=== PATIENT | female | born 1990 | race Caucasian/White ===

== ENCOUNTER 2022-11-29 10:30 | Oncology outpatient (recurring) (ONCR) | payer OTHER, SELFPAY ==
[2022-11-15 10:26] LABS: Basophils # 0.1 10^3/uL (0.0-0.1); Basophils % 0.9 %; Eosinophils # 0.1 10^3/uL (0.0-0.8); Eosinophils % 2.4 %; Hematocrit 32.9 % (36-47); Lymphocytes # 2.5 10^3/uL (0.8-4.8); Lymphocytes % 43.7 %; Mean Corpuscular HGB Conc 29.5 g/dL (30-55); Mean Corpuscular Hemoglobin 23.9 pg (27-33); Mean Platelet Volume 9.9 fL (7.4-10.4); Monocytes # 0.5 10^3/uL (0.2-0.9); Monocytes % 8.8 %; Neutrophils # 2.55 10^3/uL (1.8-7.7); Nucleated Red Blood Cells % 0 %; Platelet Count 287 10^3/cmm (157-399); Red Blood Count 4.06 10^6/uL (3.85-5.65); Red Cell Distribution Width 14.5 % (12.1-15.1); White Blood Count 5.79 10^3/uL (3.29-11.43)
[2022-11-15 10:32] LABS: Reticulocyte % 0.8 % (0.5-2.0)
[2022-11-15 10:50] LABS: Ferritin 8 ng/mL (15-150); Iron 17 ug/dL (37-145)
[2022-11-21 01:29] LABS: Soluble Transferrin Receptor 2.21 mg/L (0.76-1.76)
[2022-11-22] MEDS: sodium chloride 0.9% 250 ML 75 ML IV (10:35)
[2022-11-22] MEDS: ferric carboxy (IVPB) 750 MG in sodium chloride 0.9% (100 ml) 100 ML 345 MG IV (10:35)
[2022-11-22 11:12] VITALS: BP 104/73; PULSE 79; RESP 16; TEMP 36.6; O2SAT 96
[2022-11-29 10:25] VITALS: BP 110/77; PULSE 92; RESP 16; TEMP 36.2; O2SAT 100
[2022-11-29] MEDS: sodium chloride 0.9% 250 ML 75 ML IV (10:29)
[2022-11-29] MEDS: ferric carboxy (IVPB) 750 MG in sodium chloride 0.9% (100 ml) 100 ML 345 MG IV (10:38)
[2022-11-29 11:09] VITALS: BP 106/71; PULSE 90; RESP 16; TEMP 36.6; O2SAT 99
== END 2022-12-14 23:59 | disposition home or self-care (01) ==
PROVIDERS: Internal Medicine Medical Oncology; Visit Provider Internal Medicine Medical Oncology
DX: D50.8 Other iron deficiency anemias (principal)
CPT/HCPCS: 82728; 83540; 84238; 85025; 85045; 96365; J1439; J7050

== ENCOUNTER 2022-12-26 12:15 | Oncology outpatient (recurring) (ONCR) | payer OTHER, SELFPAY ==
[2022-12-26 12:28] VITALS: BP 100/69; PULSE 92; RESP 16; TEMP 37.1; O2SAT 99
[2022-12-26 12:29] VITALS: BMI 20.2
[2022-12-26 12:34] LABS: Basophils % 0.3 %; Eosinophils # 0.1 10^3/uL (0.0-0.8); Eosinophils % 1.5 %; Hematocrit 36.7 % (36-47); Lymphocytes # 2.7 10^3/uL (0.8-4.8); Lymphocytes % 45.7 %; Mean Corpuscular HGB Conc 32.2 g/dL (30-55); Mean Corpuscular Hemoglobin 28.6 pg (27-33); Mean Corpuscular Volume 89.1 fl (85-98); Mean Platelet Volume 9.3 fL (7.4-10.4); Monocytes # 0.4 10^3/uL (0.2-0.9); Monocytes % 6.1 %; Neutrophils # 2.71 10^3/uL (1.8-7.7); Neutrophils % 46.2 %; Nucleated Red Blood Cells % 0 %; Platelet Count 272 10^3/cmm (157-399); Red Blood Count 4.12 10^6/uL (3.85-5.65); White Blood Count 5.87 10^3/uL (3.29-11.43)
[2022-12-26 12:56] LABS: Alanine Aminotransferase 65 U/L (0-33); Albumin Level 4.1 g/dL (3.5-5.2); Alkaline Phosphatase 96 U/L (35-105); Anion Gap 12.2 (5-19); Aspartate Amino Transferase 37 U/L (0-32); Blood Urea Nitrogen 12 mg/dL (6-20); Calcium 8.7 mg/dL (8.5-10.5); Carbon Dioxide 26 mmol/L (22-29); Chloride 104 mmol/L (98-107); Ferritin 328 ng/mL (15-150); Globulin 2.5 g/dL (1.3-4.6); Glomerular Filtration Rate 115.9 mL/min (90-130); Glucose 99 mg/dL (65-115); Iron 82 ug/dL (37-145); Osmolality Calculated 286 mOsm/kg (285-295); Percent Saturation 41.6 % (20-50); Potassium 4.2 mmol/L (3.5-5.1); Sodium 138 mmol/L (136-145); Total Bilirubin 0.3 mg/dL (0.15-1.2); Total Iron Binding Capacity 197 mcg/dl; Total Protein 6.6 g/dL (6.6-8.7); Unsaturated Iron Binding 115 ug/dL (112-347)
== END 2023-01-14 23:59 | disposition home or self-care (01) ==
PROVIDERS: Visit Provider Internal Medicine Medical Oncology
DX: D50.8 Other iron deficiency anemias (principal); Z79.899 Other long term (current) drug therapy
CPT/HCPCS: 36415; 80053; 82728; 83540; 83550; 85025

== ENCOUNTER 2025-03-08 11:30 | Oncology outpatient (recurring) (ONCR) | payer OTHER, SELFPAY ==
[2025-03-01] MEDS: ferric carboxy (PYXIS) 750 MG in sodium chloride 0.9% (100 ml) 100 ML 345 MG IV (12:00)
[2025-03-01 12:28] VITALS: BP 100/68; PULSE 75; RESP 16; TEMP 37.2; O2SAT 97
[2025-03-08] MEDS: ferric carboxy (PYXIS) 750 MG in sodium chloride 0.9% (100 ml) 100 ML 345 MG IV (11:07)
[2025-03-08 11:31] VITALS: BP 105/72; PULSE 98; RESP 17; TEMP 36.7; O2SAT 100
== END 2025-03-16 23:59 | disposition home or self-care (01) ==
PROVIDERS: Visit Provider Internal Medicine
DX: D50.8 Other iron deficiency anemias; Z79.899 Other long term (current) drug therapy; Z53.9 Procedure and treatment not carried out, unspecified reason
CPT/HCPCS: 96365; J1439